=== PATIENT | female | born 2000 | race African-American/Black ===

== ENCOUNTER 2024-03-04 04:10 | Emergency (ER) | payer MEDICAID ==
[~2024-03-04] VITALS: Ht 170.2 cm; Wt 87.0 kg
[2024-03-04 04:15] VITALS: BP 109/66; PULSE 91; RESP 16; TEMP 97.3; O2SAT 97
== END 2024-03-04 04:30 ==
LOC: ER 04:10
DX: F41.9 Anxiety disorder, unspecified (principal); Z53.21 Procedure and treatment not carried out due to patient leaving prior to being seen by health care provider